=== PATIENT | female | born 1980 | race Caucasian/White ===

== ENCOUNTER 2020-08-29 05:19 | Emergency (ER) | payer OTHER ==
[2020-08-29] MEDS ORDERED: IBUPROFEN800 MG PO (06:16)
[2020-08-29] MEDS ORDERED: AUGMENTIN 875-1 EACH PO (06:16)
== END 2020-08-29 06:45 | disposition home or self-care (01) ==
LOC: ER1 05:19
DX: K05.219 Aggressive periodontitis, localized, unspecified severity (principal); E03.9 Hypothyroidism, unspecified
CPT/HCPCS: 41800; 96372; 99283; J0561; J1885